=== PATIENT | male | born 1985 | race Caucasian/White ===

== ENCOUNTER 2024-07-20 08:34 | Emergency (ER) | payer SELFPAY ==
[2024-07-20 08:40] VITALS: BP 135/89; PULSE 67; RESP 20; TEMP 36.7; O2SAT 100
--- NOTE | 2024-07-20 08:46 | ED.SKABFB ---
HPI - Skin/Abscess/Foreign Bdy General Chief complaint: Skin/Abscess/Foreign Body Stated complaint: Swelling to Face,Rash Time Seen by Provider: 07/20/24 08:47 Source: patient, RN notes reviewed and old records reviewed Mode of arrival: ambulatory Limitations: no limitations History of Present Illness HPI narrative: 39 year old male who presents to [facility] care with complaints of rash to his face, neck, hands and forearm which started Sunday morning and has progressively gotten worse. 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 Patient has swelling of his face and around his eyes with redness of skin,denies any difficulty with his breathing or with swallowing, has been taking Benadryl for the itching. MD complaint: rash Onset (ago): day(s) (2) Severity: severe Treatments prior to arrival: Benadryl Related Data Allergies Allergy/AdvReac Type Severity Reaction Status Date / Time No Known Allergies Allergy Verified 07/20/24 08:42 Review of Systems Review of Systems: CONSTITUTIONAL: Denies fever, chills, or sweats. CARDIOVASCULAR: Denies chest pain, palpitations, or edema. RESPIRATORY: Denies cough or dyspnea. SKIN: Reports redness and swelling of his face and around his eyes, he has rash noted also to forearms hands and to his neck which is itchy MUSCULOSKELETAL: Denies joint pain or myalgia. NEUROLOGIC: Denies headache, numbness, or weakness. All systems reviewed & are unremarkable except as noted in HPI and below PMFSH Social History Social History (Updated 07/20/24 @ 08:56 by Johanna Neville NP) Smoking status: Never smoker Alcohol intake: current Alcohol use details: social Substance use type: does not use Living arrangements: with family Gender identity (if verbalized by the patient): Male Comments At time of signature, agree with nursing past medical, surgical, social and family history. There is no relevant family history pertinent to the presenting complaint Exam Narrative: GENERAL: Well-appearing, well-nourished, and in no acute distress. HEAD: Normocephalic, atraumatic. EYES: PERRLA, conjunctivae clear, and EOMI.swelling around eyes and redness to face ENT: Mucous membranes moist. Oropharynx without edema, erythema or lesions. NECK: Supple. No lymphadenopathy CHEST: Clear to auscultation. No respiratory distress.denies cough SAO2 100% on room air HEART: Regular rate and rhythm. SKIN: Warm, dry.? Patches of erythema and edema to face, neck, forearms and to bilateral hands no drainage noted NEURO:? Alert and oriented x3. PSYCH: Normal mood and affect Course Course Emergency Course: Patient is aware of diagnosis, understands and agrees to treatment plan.? Anticipatory guidance given.? Patient agrees to follow-up as directed and is aware of reasons to seek care at the emergency department. Portions of this record may have been created with voice recognition software Level of Care: Express Care Visit Vital Signs Vital signs: Vital Signs Temperature 36.7 C 07/20/24 08:40 Pulse Rate 67 07/20/24 08:40 Respiratory Rate 20 07/20/24 08:40 Blood Pressure 135/89 07/20/24 08:40 Pulse Oximetry 100 07/20/24 08:40 Oxygen Delivery Room Air 07/20/24 08:40 Temperature 36.7 C 07/20/24 08:40 Pulse Rate 67 07/20/24 08:40 Respiratory Rate 20 07/20/24 08:40 Blood Pressure 135/89 07/20/24 08:40 Pulse Oximetry 100 07/20/24 08:40 Oxygen Delivery Room Air 07/20/24 08:40 Reviewed MDM - Skin/Abscess/Foreign Bdy MDM Narrative Medical decision making narrative: Does not appear at this time to be erythema multiforme, bullous, SJS, TEN; no evidence at this time to suggest RMSF, endocarditis or Lyme disease; patient looks well, nontoxic and is tolerating oral intake; no neurologic signs or symptoms; no headache, photophobia or neck pain; afebrile; appropriate for initial outpatient
[2024-07-20] MEDS: methylPREDNISolone ACETATE 80 MG/ML VIAL IM (08:59)
== END 2024-07-20 09:18 | disposition home or self-care (01) ==
PROVIDERS: Emergency Provider Registered Nurse
DX: L23.7 Allergic contact dermatitis due to plants, except food (principal)
CPT/HCPCS: 96372; 99203; G0463; J1010